=== PATIENT | female | born 1975 | race Caucasian/White ===

== ENCOUNTER 2020-01-22 08:52 | Outpatient (CLI) | payer OTHER, SELFPAY ==
--- NOTE | ~2020-01-22 | MR_ITS ---
EXAMINATION: MR knee RT wo con DATE: 01/22/2020 09:34 INDICATION: Lateral right knee pain. TECHNIQUE: Magnetic resonance imaging (MRI) of the right knee was performed without intravenous contr ast. Sequences included axial PD-weighted FS FSE, coronal PD-weighted FSE and PD-weighted FS FSE, sag ittal PD-weighted FSE, and sagittal T2-weighted FS FSE. COMPARISON: None. FINDINGS: Medial compartment: Increased signal and medial meniscus does not definitely extend to take liver surface to indicate a t ear. There is shallow partial-thickness cartilage loss of tibial condyle and femoral condyle, worst a t the central articular surface of femoral condyle. Marginal osteophytes are noted. Lateral compartment: There is a complex tear of lateral meniscus with flap component superior to the body segment. There i s deep partial thickness cartilage loss of femoral condyle involving the central articular surface. T here is deep partial thickness cartilage loss of tibial condyle involving the central articular surfa ce. Marginal osteophytes are noted. Patellofemoral compartment: There is deep partial thickness cartilage loss of patellar lateral facet with mild subchondral edema- like marrow signal intensity. There is deep partial thickness cartilage loss of patellar median ridge and medial facet. There is deep partial-thickness cartilage loss of lateral trochlea and shallow par tial-thickness cartilage loss of medial trochlea. Marginal osteophytes are noted. Ligaments and tendons: The anterior and posterior cruciate ligaments are normal. Medial collateral ligament is normal. There are changes of prior sprain of fibular collateral ligament characterized by increased signal intensi ty proximally. There is mild patellar tendinopathy. Fluid: There is a small knee joint effusion. There is trace fluid in a Lr's cyst. IMPRESSION: 1. 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 2. Tear of lateral meniscus. 3. Small knee joint effusion. Reviewed, dictated and finalized at location A. IMPRESSION: 1. Moderate chondrosis of lateral and patellofemoral compartments and mild senait drosis of medial compartment. 2. Tear of lateral meniscus. 3. Small knee joint effusion.
== END 2020-01-22 08:53 ==
PROVIDERS: Visit Provider Internal Medicine
DX: M62.89 Other specified disorders of muscle (principal); M25.461 Effusion, right knee; S83.281A Other tear of lateral meniscus, current injury, right knee, initial encounter; X58.XXXA Exposure to other specified factors, initial encounter
CPT/HCPCS: 73721

== ENCOUNTER 2023-01-20 15:32 | Emergency (ER) | payer OTHER, SELFPAY ==
--- NOTE | ~2023-01-20 | XR_ITS ---
EXAMINATION: XR chest 2V DATE: 01/20/2023 16:13 INDICATION: Left-sided chest pain TECHNIQUE: PA and lateral views of the chest are obtained. COMPARISON: None available FINDINGS: The lungs are free of acute opacities. No pleural effusion or pneumothorax. The cardiomedia stinal silhouette is normal. There is mild thoracic spondylosis. IMPRESSION: 1. No acute cardiopulmonary abnormality. Reviewed, dictated and finalized at location F.
--- NOTE | 2023-01-20 15:33 | ECG_ITS ---
Measurements Intervals [place] Rate: 75 P: 41 NM: 170 QRS: 6 QRSD: 157 T: 179 QT: 395 QTc: 442 Interpretive Statements SINUS RHYTHM LEFT BUNDLE BRANCH BLOCK [120+ ms QRS DURATION, 80+ ms Q/S IN V1/V2, 85+ ms R IN I/aVL/V5/V6] ABNORMAL ECG NO PREVIOUS ECG AVAILABLE FOR COMPARISON Electronically Signed On 01-21-2023 7:12:05 CDT by Skip Sarkar M.D.
[2023-01-20 15:34] VITALS: BP 150/74; PULSE 84; RESP 18; TEMP 36.5; O2SAT 100
[2023-01-20 15:55] LABS: Basophils Percent Auto 0.5 % (0.2-1.2); Eosinophils Absolute Auto 0.1 K/mm3 (0-0.3); Eosinophils Percent Auto 1.9 % (0-4.4); Hemoglobin 11.6 g/dL (12.0-15.0); Immature Granulocyte Absolute 0.02 K/mm3 (0.00-0.031); Immature Granulocyte Percent A 0.3 % (0-0.5); Lymphocytes Absolute Auto 1.43 K/mm3 (0.9-3.2); Lymphocytes Percent Auto 19.4 % (18.3-44.2); Mean Corpuscular HGB Conc 32.2 g/dl (32-36); Mean Corpuscular Hemoglobin 31.4 pg (26-34); Mean Corpuscular Volume 97.3 fl (80-100); Mean Platelet Volume 9.7 fl (7.4-10.4); Monocytes Absolute Auto 0.4 K/mm3 (0.1-0.6); Monocytes Percent Auto 5.8 % (2.6-8.5); Neutrophils Absolute Auto 5.3 K/mm3 (1.3-6.7); Neutrophils Percent Auto 72.1 % (45.5-73.1); Platelet Count Result 392 k/mm3 (150-375); Red Cell Distribution Width 14.2 % (11.5-14.5); White Blood Count 7.4 K/mm3 (4.5-10.0)
--- NOTE | 2023-01-20 16:12 | ED.CHESTPAIN ---
HPI - Chest Pain General Chief Complaint: Chest Pain Stated Complaint: chest pain Time Seen by Provider: 01/20/23 16:12 Source: patient and family Mode of arrival: ambulatory Limitations: no limitations History of Present Illness HPI narrative: 47 years old white female presents with left chest discomfort off and on while driving her car today usually lasts a maximum after 1 minute then go away. Radiating to her left shoulder and left arm. Currently patient is asymptomatic. She denies any aggravating or relieving factors. She denies any diaphoresis, or shortness of breath. History of hypertension, drinks alcohol occasionally, no family history of coronary artery disease. And she does not smoke. Patient is telling me that she have a history of left bundle branch block of unknown etiology. Patient reports having her grandson 2 days ago with a lot of lifting. Patient reports walking too much yesterday without any chest pain. Patient reports a lot of stress lately. Related Data Allergies Allergy/AdvReac Type Severity Reaction Status Date / Time Sulfa (Sulfonamide AdvReac Flushing Verified 01/20/23 15:37 Antibiotics) Review of Systems Review of Systems: All systems reviewed & are unremarkable except as noted in HPI and below Exam Narrative: General appearance: Well-developed, well-nourished Skin: Normal color Head: Normocephalic, nontraumatic Eyes: Clear conjunctiva ENT: Oropharynx normal, ears normal, nose normal Neck: Supple, nontender Chest and respiratory: Airway patent, no respiratory distress, no accessory muscle use Heart: Regular rate/rhythm Abdomen: Soft, nontender, no organomegaly, quiet bowel sounds Vascular: Normal peripheral pulses, normal capillary refill. Musculoskeletal: Normal range of motion, nontender back Neurologic: Alert and oriented ?3, MACHINE CARTON MARKER is normal as tested, no gross motor deficit Course Reevaluation(s) Reevaluation #1: Patient still asymptomatic Date: 01/20/23 Time: 18:04 Vital Signs Vital signs: Vital Signs Temperature 36.5 C 01/20/23 15:34 Pulse Rate 84 01/20/23 15:34 Respiratory Rate 18 01/20/23 15:34 Blood Pressure 150/74 H 01/20/23 15:34 Pulse Oximetry 100 01/20/23 15:34 Oxygen Delivery Room Air 01/20/23 15:34 Temperature 36.5 C 01/20/23 15:34 Pulse Rate 84 01/20/23 15:34 Respiratory Rate 18 01/20/23 15:34 Blood Pressure 150/74 H 01/20/23 15:34 Pulse Oximetry 100 01/20/23 15:34 Oxygen Delivery Room Air 01/20/23 15:34 MDM - Chest Pain MDM Narrative Medical decision making narrative: Differential diagnosis, musculoskeletal, stress-induced, pleurisy, pneumonia. Physical exam was unremarkable, blood pressure of 150/74 on arrival to the ED. EKG on arrival showed normal sinus rhythm at 75 bpm, left bundle branch block, no previous EKG available for comparison. Patient is telling me that she had history of EKG prior to surgery which showed left bundle branch block long time ago. Lab Data Attestation: I reviewed the patient's lab results. 01/20/23 15:41 01/20/23 15:41 Labs: Lab Results 01/20/23 01/20/23 Range/Units 15:41 18:44 WBC 7.4 (4.5-10.0) K/mm3 RBC 3.70 L (4.2-5.4) M/mm3 Hgb 11.6 L (12.0-15.0) g/dL Hct 36.0 L (37.0-47.0) % MCV 97.3 (80-100) fl MCH 31.4 (26-34) pg MCHC 32.2 (32-36) g/dl RDW 14.2 (11.5-14.5) % Plt Count 392 H (150-375) k/mm3 MPV 9.7 (7.4-10.4) fl Immature Gran % (Auto) 0.3 (0-0.5) % Neut % (Auto) 72.1 (45.5-73.1) % Lymph % (Auto) 19.4 (18.3-44.2) % [place] % (Auto) 5.8 (2.6-8.5) % Eos % (Auto) 1.9 (0-4.4) % Baso % (Auto) 0.5
[2023-01-20 16:13] LABS: Alanine Aminotransferase 28 U/L (6-35); Albumin Level 4.5 g/dL (3.5-5.1); Alkaline Phosphatase 84 U/L (38-126); Anion Gap 8 mmol/L (8-16); Aspartate Amino Transferase 26 U/L (14-36); Blood Urea Nitrogen 11 mg/dL (7-17); Calcium 9.5 mg/dL (8.4-10.2); Carbon Dioxide 23 mmol/L (22-30); Chloride 106 mmol/L (98-107); Estimated CRCL calculation 87 ml/min; Estimated Glomerular Filt Rate > 60; Glucose 113 mg/dL (65-110); Lipase 191 U/L (23-300); Potassium 3.9 mmol/L (3.4-5.0); Prothrombin Time 13.5 Seconds (11.1-14.7); Sodium 137 mmol/L (137-145)
[2023-01-20 16:14] LABS: Partial Thromboplastin Time 32.4 SECONDS (22.3-36.8)
[2023-01-20 16:23] LABS: Troponin I < 0.012 ng/mL (0.000-0.034)
[2023-01-20 16:37] LABS: Bilirubin,Total 0.7 mg/dL (0.2-1.3)
[2023-01-20 19:11] LABS: Troponin I < 0.012 ng/mL (0.000-0.034)
[2023-01-20 19:29] VITALS: BP 110/55; PULSE 63; RESP 20; O2SAT 99
== END 2023-01-20 19:31 | disposition home or self-care (01) ==
PROVIDERS: Emergency Provider Emergency Medicine
DX: R07.89 Other chest pain (principal); I10 Essential (primary) hypertension; I44.7 Left bundle-branch block, unspecified
CPT/HCPCS: 36415; 71046; 80053; 83690; 84484; 85025; 85610; 85730; 93005; 99284

== ENCOUNTER 2023-01-31 16:29 | Inpatient (IN) | payer OTHER, SELFPAY ==
[2023-01-31] VITALS (12 sets, daily range): BP systolic 94–133; BP diastolic 42–76; PULSE 64–88; RESP 9–21; TEMP 36.6–36.7; O2SAT 96–100; BMI 31.6
--- NOTE | ~2023-01-31 | XR_ITS ---
EXAMINATION: XR chest 1V portable Exam Date/Time: 01/31/2023 17:10 CDT HISTORY: cp. WEAKNESS Comparison: 01/20/2023. RESULT: Lines, tubes, and devices: None. Lungs and pleura: Clear. Cardiomediastinal silhouette: Stable. Other: No acute osseous or upper abdominal finding. IMPRESSION: No acute cardiopulmonary process. Reviewed, dictated and finalized at location K.
--- NOTE | ~2023-01-31 | CT_ITS ---
EXAMINATION: CT brain wo con DATE: 01/31/2023 17:39 INDICATION: Dizziness . TECHNIQUE: Computed tomography (CT) of the head was performed without intravenous contrast. The mA wa s adjusted according to patient size. Iterative reconstruction technique was employed. The dose-lengt h product was 605.33 mGy-cm. COMPARISON: None. FINDINGS: No acute intracranial hemorrhage or extra-axial fluid collection. No hydrocephalus, mass, or herniation. No acute ischemic infarct. Unremarkable dural venous sinus attenuation. No acute osseous abnormality. Small retention cyst/polyps in the sphenoid and right maxillary sinus. Aerated secretions in the left sphenoid and right middle ethmoid sinuses, the remaining aerated aerated spaces are clear. IMPRESSION: No acute intracranial process. Aerated secretions in multiple paranasal sinuses may reflect acute sinusitis in the appropriate clini [place] context. Reviewed, dictated and finalized at [facility]. IMPRESSION: No acute intracranial process. Aerated secretions in multiple paranasal sinuses may reflect acute sinusitis in the appropriate clinical context.
--- NOTE | ~2023-01-31 | CT_ITS ---
EXAMINATION: CTA BRAIN/CAROTID DATE: 02/02/2023 13:21 INDICATION: Lightheadedness and dizziness. TECHNIQUE: Computed tomographic angiography (CTA) of the head and neck was performed with 100 mL Omni paque-350 intravenous contrast. Multiplanar reconstructions and maximum intensity projection 3D-recon structions of the carotid arteries and of the intracranial arteries were created by the technologist on a separate workstation. Precontrast CT of the head was also obtained. Automated exposure control and iterative reconstruction technique were employed.The dose-length product was 1563.99 mGy-cm. COMPARISON: Brain MR dated 01/02/2023 and PET/CT dated 01/31/2023 FINDINGS: Carotid arteries: Visualized aortic arch is normal in caliber with no dissection. There is no evident plaque with 0% st enosis of both the right and left carotid bulbs relative to normal distal artery lumen diameter (NASC ET criteria). The left vertebral artery is dominant with no evident atherosclerotic plaque or stenosi s. Cervical soft tissues and visualized superior mediastinum and apices of lungs are unremarkable. Mi ld to moderate cervical spondylosis. Head: No acute intracranial hemorrhage, acute infarction or abnormal extra axial fluid collection. Ventricl es are normal and symmetric. No mass/mass effect. No abnormally enhancing brain lesions. The orbits a nd mastoid air cells are normal. Mild mucosal thickening in the right sphenoid sinus and small amount of bubbly mucus in the left sphenoid sinus. Intracranial arteries There is no hemodynamically significant stenosis in the vertebral, basilar and internal carotid arter ies. The left vertebral artery is dominant. There are no aneurysms identified. Both A1 and P1 segmen ts are patent. The right P1 segment is smaller than the left with a similar sized patent right key account manager ior commuting artery contributing to the vascular flow to the right posterior cerebral artery. Cerebr al arterial arborization appears symmetric. IMPRESSION: 1. No evident atherosclerotic plaque with 0% stenosis of the right and left carotid bulbs relative to normal distal artery lumen diameter (NASCET criteria). 2. Normal cerebral CT angiogram. 3. No acute intracranial process. Reviewed, dictated and finalized at location A. IMPRESSION: 1. No evident atherosclerotic plaque with 0% stenosis of the right and left car otid bulbs relative to normal distal artery lumen diameter (NASCET criteria). 2. Normal cerebral CT angiogram. 3. No acute intracranial process.
--- NOTE | ~2023-01-31 | MR_ITS ---
EXAMINATION: MR brain/brain stem wo con DATE: 02/02/2023 13:13 INDICATION: Acute onset dizziness TECHNIQUE: Magnetic resonance imaging (MRI) of the brain and brainstem was performed without intraven ous contrast. Sequences included sagittal and axial T1-weighted SE, axial diffusion-weighted FS SE, a xial 3D SWAN, axial T2-weighted FLAIR, and axial T2-weighted FSE. Apparent diffusion coefficient (ADC ) maps were created. COMPARISON: Head CT dated 01/31/2023 FINDINGS: There are no areas of restricted diffusion to suggest acute infarction. No intracranial hemorrhage or abnormal intracranial mass lesion. There are no intraparenchymal signal abnormalities seen on the ot her pulse sequences. The ventricles are symmetric and normal in size. There are no abnormal extra-axi al fluid collections. Flow voids are seen in the cerebral arteries on the T2-weighted sequences consi stent with their expected patency. Left vertebral artery is dominant. Mild mucosal thickening the janna ateral maxillary sinuses. Small amount of bubbly mucus in the left sphenoid sinus. Visualized orbits and soft tissues are unremarkable. IMPRESSION: 1. No acute intracranial process. Reviewed, dictated and finalized at location A.
--- NOTE | 2023-01-31 16:57 | ECG_ITS ---
Measurements Intervals [place] Rate: 74 P: 46 MD: 162 QRS: 4 QRSD: 169 T: 174 QT: 428 QTc: 477 Interpretive Statements SINUS RHYTHM LEFT BUNDLE BRANCH BLOCK [120+ ms QRS DURATION, 80+ ms Q/S IN V1/V2, 85+ ms R IN I/aVL/V5/V6] ABNORMAL ECG COMPARED TO ECG 01/20/2023 15:39:30 NO SIGNIFICANT CHANGES Electronically Signed On 02-01-2023 9:43:41 CDT by Jerardo Storey M.D.
[2023-01-31 17:20] LABS: Basophils Absolute Auto 0.1 K/mm3 (0.0-0.1); Basophils Percent Auto 0.5 % (0.2-1.2); Eosinophils Absolute Auto 0.1 K/mm3 (0-0.3); Hematocrit 37.3 % (37.0-47.0); Hemoglobin 12.1 g/dL (12.0-15.0); Immature Granulocyte Absolute 0.04 K/mm3 (0.00-0.031); Immature Granulocyte Percent A 0.4 % (0-0.5); Lymphocytes Absolute Auto 2.05 K/mm3 (0.9-3.2); Lymphocytes Percent Auto 22.4 % (18.3-44.2); Mean Corpuscular HGB Conc 32.4 g/dl (32-36); Mean Corpuscular Hemoglobin 31.3 pg (26-34); Mean Corpuscular Volume 96.4 fl (80-100); Mean Platelet Volume 10.3 fl (7.4-10.4); Monocytes Absolute Auto 0.5 K/mm3 (0.1-0.6); Monocytes Percent Auto 5.9 % (2.6-8.5); Neutrophils Absolute Auto 6.4 K/mm3 (1.3-6.7); Neutrophils Percent Auto 69.8 % (45.5-73.1); Platelet Count Result 466 k/mm3 (150-375); Red Blood Count 3.87 M/mm3 (4.2-5.4); Red Cell Distribution Width 13.6 % (11.5-14.5); White Blood Count 9.2 K/mm3 (4.5-10.0)
--- NOTE | 2023-01-31 17:26 | ED.DIZZY ---
HPI - Dizziness General Chief Complaint: Dizziness Stated Complaint: lightheaded/dizzy Time Seen by Provider: 01/31/23 17:19 Source: patient Mode of arrival: ambulatory Limitations: no limitations History of Present Illness HPI Narrative: 47 years old white female came to the emergency room by private car complaining of lightheadedness and dizziness associated with nausea started 7 hours prior to arrival to the emergency room, steady, worse with standing or movement, better if she remaining still. History of hypertension, cardiomyopathy of unknown etiology, polycystic kidney disease, left bundle branch block,. Currently patient on metoprolol and losartan. She does not smoke or drink or uses drugs. Related Data Home Medications Medication Instructions Recorded Confirmed bupropion HCl 300 mg 24 hr tablet, 300 mg PO QAM 01/20/23 01/31/23 extended release (Wellbutrin XL) furosemide 40 mg tablet (Lasix) 40 mg PO DAILY 01/20/23 01/31/23 losartan 100 mg tablet 100 mg PO DAILY 01/20/23 01/31/23 metoprolol tartrate 50 mg tablet 50 mg PO BID 01/20/23 01/31/23 montelukast 10 mg tablet 10 mg PO DAILY 01/20/23 01/31/23 (Singulair) venlafaxine 75 mg tablet 225 mg PO DAILY 01/20/23 01/31/23 esomeprazole magnesium 40 mg 40 mg PO DAILY 01/31/23 01/31/23 capsule,delayed release famotidine 40 mg tablet 40 mg PO DAILY 01/31/23 01/31/23 Allergies Allergy/AdvReac Type Severity Reaction Status Date / Time Sulfa (Sulfonamide AdvReac Flushing Verified 01/20/23 15:37 Antibiotics) Review of Systems Review of Systems: All systems reviewed & are unremarkable except as noted in HPI and below PMFSH Past Medical History Medical History (Updated 01/31/23 @ 21:40 by Tom Lucio MD) Cardiomyopathy Hypertension Obesity (BMI 30.0-34.9) Family History Family History Grandparent Diabetes mellitus Hypertension Mother Hypertension Father Hypertension Heart disease Sibling Hypertension Social History Social History Smoking status: Never smoker Alcohol intake: current Drinks per week: 1 Substance use: never Lack of Transportation: No Lack of Food: Never True Current Housing: I Have Housing Concerned About Future Housing: No Difficulty Paying Gas/Electric Bills: No Difficulty Paying for Meds: No Currently Unemployed: No Education: High School Diploma/GED Difficulty w/ Childcare or Family Care: No Spiritual care concerns: No Exam Narrative: General appearance: Well-developed, well-nourished Skin: Normal color Head: Normocephalic, nontraumatic Eyes: Clear conjunctiva ENT: Oropharynx normal, ears normal, nose normal Neck: Supple, nontender Chest and respiratory: Airway patent, no respiratory distress, no accessory muscle use Heart: Regular rate/rhythm Abdomen: Soft, nontender, no organomegaly, quiet bowel sounds Vascular: Normal peripheral pulses, normal capillary refill. Musculoskeletal: Normal range of motion, nontender back Neurologic: Alert and oriented ?3, BUDGET MANAGER is normal as tested, no gross motor deficit Course Vital Signs Vital signs: Vital Signs Temperature 36.6 C 01/31/23 16:54 Pulse Rate 88 01/31/23 16:54 Respiratory Rate 16 01/31/23 16:54 Blood Pressure 101/67 01/31/23 16:54 Pulse Oximetry 98 01/31/23 16:54 Temperature 36.6 C 01/31/23 16:54 Pulse Rate 64 01/31/23 20:03 Respiratory Rate 15 01/31/23 20:03 Blood Pressure 118/50 L 01/31/23 20:03 Pulse Oximetry 100 01/31/23 20:03 MDM - Dizziness MDM Narrative Medical decision making narrative: Mirtha
[2023-01-31 17:43] LABS: Alanine Aminotransferase 52 U/L (6-35); Albumin Level 4.8 g/dL (3.5-5.1); Alkaline Phosphatase 92 U/L (38-126); Anion Gap 13 mmol/L (8-16); Aspartate Amino Transferase 39 U/L (14-36); Bilirubin,Total 0.7 mg/dL (0.2-1.3); Blood Urea Nitrogen 21 mg/dL (7-17); Calcium 9.8 mg/dL (8.4-10.2); Carbon Dioxide 27 mmol/L (22-30); Chloride 99 mmol/L (98-107); Estimated CRCL calculation 53 ml/min; Estimated Glomerular Filt Rate 37; Glucose 96 mg/dL (65-110); Lipase 201 U/L (23-300); Potassium 3.5 mmol/L (3.4-5.0); Sodium 139 mmol/L (137-145)
[2023-01-31] MEDS: MECLIZINE HCL 25 MG TABLET PO (17:53)
[2023-01-31] MEDS: ONDANSETRON INJ 4 MG/2 ML VIAL IV PUSH (17:53)
[2023-01-31] MEDS: diazePAM INJ (*CRX) 10 MG/2 ML SYRINGE 5 MG IV PUSH (17:53)
[2023-01-31 17:55] LABS: Troponin I < 0.012 ng/mL (0.000-0.034)
[2023-01-31 17:58] LABS: Partial Thromboplastin Time 33.4 SECONDS (22.3-36.8)
[2023-01-31 18:12] LABS: Prothrombin Time 13.5 Seconds (11.1-14.7)
[2023-01-31] MEDS: SODIUM CHLORIDE 0.9% IV 1,000 ML 999 ML IV CONT ×2 (18:29→21:10)
[2023-01-31 19:27] LABS: Appearance Urine Cloudy (Clear); Bacteria Urine Rare /hpf; Bilirubin Urine 2+ (Negative); Blood Urine Trace (Negative); Color Urine Dark Yellow (Yellow); Glucose Urine UA Negative (Negative); Hyaline Casts Urine Present /lpf; Ketones Urine Trace mg/dL (Negative); Leukocyte Esterase Ur 1+ LEU/UL (Negative); Nitrate Urine Negative (Negative); Protein Urine 1+ mg/dL (Negative); Specific Grav Ur 1.025 (1.001-1.035); Squamous Epithelial Cell Urine Occasional /hpf (Few); WBC Urine 0-5 /hpf; pH Urine 5.5 (5.0-9.0)
[2023-01-31 19:28] LABS: Add Urine Microscopic? YES
[2023-01-31 20:18] LABS: Troponin I < 0.012 ng/mL (0.000-0.034)
--- NOTE | 2023-01-31 21:33 | PM.IMHP ---
H&P: HPI History of Present Illness Date/Time: 01/31/23 21:33 Chief Complaint: Patient came into the hospital for evaluation complaining of dizziness and lightheadedness Narrative: She is a very pleasant lady with the past medical history significant for cardiomyopathy of unknown etiology, currently on Lasix and cardiac meds, who is complaining of feeling weak, tired and fatigued for the last few hours as well as dizziness. She got concerned and was brought over to the ER for evaluation by her family in a private vehicle. Workup was done which showed dehydration and YASMANI likely due to over-diuresis. She was started on IV hydration which made her feel a little better but she still feels dizzy. She is being admitted overnight for gentle hydration until she is clinically more stable. Review of Systems Review of Systems: She denied any chest pain, palpitations, fever rigor chills, nausea vomiting, or abdominal pain. All systems reviewed & are unremarkable except as noted in HPI and below PMFSH Past Medical History Medical History (Updated 01/31/23 @ 21:40 by Tom Lucio MD) Cardiomyopathy Hypertension Obesity (BMI 30.0-34.9) Meds Home Medications and Allergies Home Medications Medication Instructions Recorded Confirmed Type bupropion HCl 300 mg 24 hr tablet, 300 mg PO QAM 01/20/23 History extended release (Wellbutrin XL) furosemide 40 mg tablet (Lasix) 40 mg PO DAILY 01/20/23 History losartan 100 mg tablet 100 mg PO DAILY 01/20/23 History metoprolol tartrate 50 mg tablet 50 mg PO BID 01/20/23 History montelukast 10 mg tablet 10 mg PO DAILY 01/20/23 History (Singulair) venlafaxine 75 mg tablet 225 mg PO DAILY 01/20/23 History Allergies Allergy/AdvReac Type Severity Reaction Status Date / Time Sulfa (Sulfonamide AdvReac Flushing Verified 01/20/23 15:37 Antibiotics) Vital Signs Vital Signs - 24 hr 01/31/23 16:54 01/31/23 17:10 01/31/23 17:12 Temperature 36.6 C Pulse Rate 88 72 84 Respiratory Rate 16 Blood Pressure 101/67 117/63 113/75 Pulse Oximetry 98 01/31/23 17:14 01/31/23 17:58 01/31/23 18:16 Temperature Pulse Rate 88 78 75 Respiratory Rate 16 19 Blood Pressure 125/72 94/57 L 105/76 Pulse Oximetry 97 96 01/31/23 18:17 01/31/23 18:49 01/31/23 19:00 Temperature Pulse Rate 74 67 69 Respiratory Rate 13 9 L 11 L Blood Pressure Pulse Oximetry 98 100 100 01/31/23 19:01 01/31/23 20:03 Temperature Pulse Rate 68 64 Respiratory Rate 14 15 Blood Pressure 114/67 118/50 L Pulse Oximetry 98 100 Exam Narrative: PHYSICAL EXAMINATION: Vital signs: Please see the chart. General physical exam: Well-developed, well-nourished, feels tired and fatigued Head/eyes: Atraumatic, EOMI, PERRLA. ENT: +dry mucous membranes, nasal passages clear. Neck: Supple, full range of motion, trachea midline. CVS: S1 + S2 + 0, regular rate and rhythm, no murmurs Respiratory: Bilaterally fair air entry in both lung beverly, mild B/L crackles, symmetric chest expansion, no distress Abdomen: Soft, non-tender, bowel sounds +ve, no organomegaly Extremities: No clubbing, no cyanosis, no edema, no calf tenderness Musculoskeletal: Moves all, adequate range of motion, no muscle spasms Skin: Warm, dry, no jaundice, no cyanosis Neurological: Awake, alert, oriented x 3, cranial nerves II-XII intact, no focal neurological deficits Psychiatric: Normal mood, non suicidal H&P: Results Labs Labs: Short CBC 01/31/23 Range/Units 17:13 WBC 9.2 (4.5-10.0) K/mm3 Hgb 12.1 (12.0-15.0) g/dL Hct 37.3 (37.0-47.0) % Plt Count 466 H (150-375) k/mm3 BMP 01/31/23 17:13 Sodium 139 Potassium 3.5 Chloride 99 Carbon Dioxide 27 BUN 21 H D Creatinine 1.50 H Glucose 96 Calcium 9.8 Cardiac Enzymes 01/31/23 01/31/23 Range/Units 17:13 19:49 Troponin I < 0.012 < 0.012 (0.000-0.034) ng/mL Liver Function 01/31/23 Range/Units 17:13
[2023-01-31] MEDS: KCL 20 MEQ/D5/0.45% SOD CHL 1,000 ML 125 ML IV CONT (22:24)
--- NOTE | 2023-01-31 23:06 | PC.NURSE ---
Pt arrived at 2300 01/31/23
[2023-01-31 23:40] LABS: Troponin I < 0.012 ng/mL (0.000-0.034)
[2023-02-01] VITALS (14 sets, daily range): BP systolic 112–121; BP diastolic 42–62; PULSE 60–77; RESP 13–21; TEMP 36.3–36.9; O2SAT 95–100
[2023-02-01 05:52] LABS: Anion Gap 3 mmol/L (8-16); Blood Urea Nitrogen 14 mg/dL (7-17); Calcium 8.4 mg/dL (8.4-10.2); Carbon Dioxide 30 mmol/L (22-30); Chloride 105 mmol/L (98-107); Estimated CRCL calculation 73 ml/min; Estimated Glomerular Filt Rate 53; Glucose 91 mg/dL (65-110); Magnesium 2.1 mg/dL (1.6-2.3); Phosphorus 3.7 mg/dL (2.5-4.5); Potassium 3.4 mmol/L (3.4-5.0); Sodium 138 mmol/L (137-145)
[2023-02-01] MEDS: KCL 20 MEQ/D5/0.45% SOD CHL 1,000 ML 125 ML IV CONT (06:15)
[2023-02-01] MEDS: METOPROLOL TARTRATE 50 MG TAB PO ×2 (08:18→20:14)
[2023-02-01] MEDS: LOSARTAN POTASSIUM 100 MG TABLET PO (08:18)
[2023-02-01] MEDS: PANTOPRAZOLE 40 MG TABLET PO (08:19)
[2023-02-01] MEDS: buPROPion HCL XL (24 HR) 150 MG TABCR 300 MG PO (08:19)
[2023-02-01] MEDS: MONTELUKAST SODIUM 10 MG TABLET PO (08:19)
[2023-02-01] MEDS: FAMOTIDINE 20 MG TABLET 40 MG PO (08:19)
--- NOTE | 2023-02-01 08:36 | PM.IMPN ---
Progress Note: A&P Assessment and Plan (1) Orthostatic hypotension: Code(s): I95.1 - Orthostatic hypotension Status: Acute (2) Dehydration: Code(s): E86.0 - Dehydration Status: Acute (3) YASMANI (acute kidney injury): Code(s): N17.9 - Acute kidney failure, unspecified Status: Acute (4) Cardiomyopathy: Code(s): I42.9 - Cardiomyopathy, unspecified Status: Acute (5) Obesity (BMI 30.0-34.9): Code(s): E66.9 - Obesity, unspecified Status: Acute (6) Hypertension: Code(s): I10 - Essential (primary) hypertension Status: Acute Plan Place patient under observation status Continuous cardiac tele monitoring Patient received 2 L of IV hydration in the ER Continue with gentle IV hydration with D5 half normal saline with 20 mEq KCL at 125 cc/hour on the floor Strict I&O Hold off on Lasix Continue with cardiac meds 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 Electrolyte replacement as per protocol. Kidney function is improving, patient still has a dizziness Vital signs stable Repeat echocardiogram Subjective Date/time seen: 02/01/23 08:36 Interval history: I saw exam patient today, patient still has dizziness, patient received fluid resuscitation, BUN creatinine is trending down. Patient denies headache, focal weakness, abdomen pain, nausea vomiting diarrhea dysuria Exam Narrative: Vital signs: Please see the chart. General physical exam: Well-developed, well-nourished, feels tired and fatigued Head/eyes: Atraumatic, EOMI, PERRLA. ENT: +dry mucous membranes, nasal passages clear. Neck: Supple, full range of motion, trachea midline. CVS: S1 + S2 + 0, regular rate and rhythm, no murmurs Respiratory: Bilaterally fair air entry in both lung beverly, mild B/L crackles, symmetric chest expansion, no distress Abdomen: Soft, non-tender, bowel sounds +ve, no organomegaly Extremities: No clubbing, no cyanosis, no edema, no calf tenderness Musculoskeletal: Moves all, adequate range of motion, no muscle spasms Skin: Warm, dry, no jaundice, no cyanosis Neurological: Awake, alert, oriented x 3, cranial nerves II-XII intact, no focal neurological deficits Psychiatric: Normal mood, non suicidal Objective Data Vital Signs Vital Signs: Vital Signs - 24 hr 01/31/23 16:54 01/31/23 17:10 01/31/23 17:12 Temperature 97.9 F Pulse Rate 88 72 84 Respiratory Rate 16 Blood Pressure 101/67 117/63 113/75 Pulse Oximetry 98 Oxygen Delivery 01/31/23 17:14 01/31/23 17:58 01/31/23 18:16 Temperature Pulse Rate 88 78 75 Respiratory Rate 16 19 Blood Pressure 125/72 94/57 L 105/76 Pulse Oximetry 97 96 Oxygen Delivery 01/31/23 18:17 01/31/23 18:49 01/31/23 19:00 Temperature Pulse Rate 74 67 69 Respiratory Rate 13 9 L 11 L Blood Pressure Pulse Oximetry 98 100 100 Oxygen Delivery 01/31/23 19:01 01/31/23 20:03 01/31/23 23:53 Temperature 98.0 F Pulse Rate 68 64 76 Respiratory Rate 14 15 21 H Blood Pressure 114/67 118/50 L 133/42 L Pulse Oximetry 98 100 100 Oxygen Delivery 02/01/23 01:02 02/01/23 01:02 02/01/23 00:00 Temperature Pulse Rate 71 77 Respiratory Rate 13 Blood Pressure Pulse Oximetry 96 95 Oxygen Delivery Room Air [employer] 02/01/23 04:00 02/01/23 06:00 02/01/23 08:18 Temperature 98.5 F Pulse Rate 73 76 75 Respiratory Rate 21 H Blood Pressure 121/50 L Pulse Oximetry 100 Oxygen Delivery Intake/Output Intake/Output: Intake & Output 01/29/23 01/30/23 01/31/23 02/01/23 23:59 23:59 23:59 23:59 Intake Total 1999 1500 Output Total 800 Balance 1999 700 Meds/Results Medications: Active Medications Generic Name Dose
--- NOTE | 2023-02-01 08:41 | ECHO_ITS ---
Patient Info Name: Cee Quintero Age: 47 years : 1975 Gender: Female Ht: 71 in Wt: 227 lbs BSA: 2.30 m2 HR: 71 bpm BP: 121 / 50 mmHg Heart Rhythm: Sinus Rhythm Technical Quality: Fair Exam Date: 02/01/2023 1:30 PM Exam Location: [facility] Patient Status: Inpatient Admit Date: 01/31/2023 Staff Ordering Physician: Iban Meneses MD Stone Paver: Beatriz Phillips RDCS Attending Provider: Tom Lucio MD Exam Type: CA echo doppler color flow Study Info Indications R42 - Dizziness and giddiness Complete two-dimensional, color flow and Doppler transthoracic echocardiogram is performed. Summary 1. Complete two-dimensional, color flow and Doppler transthoracic echocardiogram is performed. 2. Overall normal left ventricular systolic function with abnormal septal motion due to bundle branch block. 3. Grade 1 diastolic noncompliance. 4. No valvular dysfunction. Left Ventricle Left ventricular chamber dimension is normal. Left ventricular systolic function is normal, estimated at 50-55%. Left ventricular septal wall motion is abnormal with septal motion related to bundle branch block. The left ventricular diastolic function is grade I diastolic dysfunction. Right Ventricle Right ventricular chamber dimension is normal. Left Atria Left atrial chamber dimension is normal. Right Atria Right atrial chamber dimension is normal. Aortic Valve The aortic valve is trileaflet. Pulmonic Valve The pulmonic valve is not well visualized. Mitral Valve The mitral valve has normal leaflets. Tricuspid Valve The tricuspid valve leaflets are normal. There is trace tricuspid valve regurgitation. Pericardium/Pleural The pericardium appears normal. Aorta The aortic root size at the sinus of Valsalva is normal. Left Ventricular Outflow Tract Name Value Normal LVOT 2D LVOT Diameter 2.0 cm LVOT Doppler LVOT Peak Gradient 9 mmHg LVOT Mean Gradient 5 mmHg LVOT VTI 30 cm LVOT VTI/AV VTI Ratio 0.9 LVOT Stroke Volume 92 ml LVOT CO 6.6 l/min LVOT CI 2.9 l/min/m2 Pulmonic Valve Name Value Normal RVOT Doppler RVOT Peak Gradient 5 mmHg PV Doppler PV Peak Gradient 8 mmHg Mitral Valve Name Value Normal MV Doppler MV Decel [place] 655 cm/s2 MV PHT 43 ms MV Area (PHT) 5.2 cm2 4.0-5.0
[2023-02-01] MEDS: VENLAFAXINE HCL XR 75 MG CAP.ER.24H 225 MG PO (09:43)
[2023-02-01] MEDS: SODIUM CHLORIDE 0.9% IV 1,000 ML 150 ML IV CONT ×2 (09:44→16:33)
[2023-02-01] MEDS: MECLIZINE HCL 25 MG TABLET PO (20:14)
[2023-02-02] VITALS (12 sets, daily range): BP systolic 107–118; BP diastolic 47–62; PULSE 57–72; RESP 18–21; TEMP 36–36.7; O2SAT 100
[2023-02-02 06:18] LABS: Anion Gap 8 mmol/L (8-16); Blood Urea Nitrogen 8 mg/dL (7-17); Calcium 9.1 mg/dL (8.4-10.2); Carbon Dioxide 27 mmol/L (22-30); Chloride 106 mmol/L (98-107); Estimated CRCL calculation 79 ml/min; Estimated Glomerular Filt Rate 59; Glucose 88 mg/dL (65-110); Potassium 3.8 mmol/L (3.4-5.0); Sodium 141 mmol/L (137-145)
--- NOTE | 2023-02-02 08:35 | PM.IMPN ---
Progress Note: A&P Assessment and Plan (1) Orthostatic hypotension: Code(s): I95.1 - Orthostatic hypotension Status: Acute (2) Dehydration: Code(s): E86.0 - Dehydration Status: Acute (3) YASMANI (acute kidney injury): Code(s): N17.9 - Acute kidney failure, unspecified Status: Acute (4) Cardiomyopathy: Code(s): I42.9 - Cardiomyopathy, unspecified Status: Acute (5) Obesity (BMI 30.0-34.9): Code(s): E66.9 - Obesity, unspecified Status: Acute (6) Hypertension: Code(s): I10 - Essential (primary) hypertension Status: Acute Plan Place patient under observation status Continuous cardiac tele monitoring Patient received 2 L of IV hydration in the ER Continue with gentle IV hydration with D5 half normal saline with 20 mEq KCL at 125 cc/hour on the floor Strict I&O Hold off on Lasix Continue with cardiac meds 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 Electrolyte replacement as per protocol. Kidney function is improving, patient still has a dizziness Vital signs stable Repeated echocardiogram, report is pending consult neurologist for evaluation and treatments a Subjective Date/time seen: 02/02/23 08:35 Interval history: I saw exam patient today, patient still has dizziness, renal function recovers. Patient denies headache, focal weakness, abdomen pain, nausea vomiting diarrhea dysuria Exam Narrative: Vital signs: Please see the chart. General physical exam: Well-developed, well-nourished, feels tired and fatigued Head/eyes: Atraumatic, EOMI, PERRLA. ENT: +dry mucous membranes, nasal passages clear. Neck: Supple, full range of motion, trachea midline. CVS: S1 + S2 + 0, regular rate and rhythm, no murmurs Respiratory: Bilaterally fair air entry in both lung beverly, mild B/L crackles, symmetric chest expansion, no distress Abdomen: Soft, non-tender, bowel sounds +ve, no organomegaly Extremities: No clubbing, no cyanosis, no edema, no calf tenderness Musculoskeletal: Moves all, adequate range of motion, no muscle spasms Skin: Warm, dry, no jaundice, no cyanosis Neurological: Awake, alert, oriented x 3, cranial nerves II-XII intact, no focal neurological deficits Psychiatric: Normal mood, non suicidal Objective Data Vital Signs Vital Signs: Vital Signs - 24 hr 02/01/23 12:05 02/01/23 16:00 02/01/23 16:06 Temperature 97.9 F Pulse Rate 61 63 Respiratory Rate 18 Blood Pressure 114/42 L 112/55 L Pulse Oximetry 99 Oxygen Delivery 02/01/23 16:06 02/01/23 16:05 02/01/23 20:14 Temperature Pulse Rate 60 63 Respiratory Rate Blood Pressure 113/54 L Pulse Oximetry Oxygen Delivery 02/01/23 21:02 02/01/23 20:00 02/02/23 00:00 Temperature 97.3 F L Pulse Rate 63 68 66 Respiratory Rate 18 Blood Pressure 115/62 Pulse Oximetry 100 Oxygen Delivery 02/01/23 22:25 02/02/23 04:00 02/02/23 05:06 Temperature 97.6 F Pulse Rate 70 65 Respiratory Rate 18 Blood Pressure 118/47 L Pulse Oximetry 99 100 Oxygen Delivery Room Air Intake/Output Intake/Output: Intake & Output 01/30/23 01/31/23 02/01/23 02/02/23 23:59 23:59 23:59 23:59 Intake Total 1999 4230 Output Total 1400 1500 Balance 1999 2830 -1500 Meds/Results Medications: Active Medications Generic Name Dose Route Start Last Admin Trade Name Freq PRN Reason Stop Dose Admin Acetaminophen 650 mg 01/31/23 21:49 Acetaminophen 325 Mg Tablet PO Q4H PRN Mild Pain (1-3) or Fever Al Hydrox/Mg Hydrox/Simethicone 30 ml 01/31/23 21:43 Mag Hydrox/Al Hydrox/Simeth 30 Ml Udc PO QID PRN Dyspepsia Bupropion HCl 300 mg 02/01/23 09:00 02/01/23 08:19
[2023-02-02] MEDS: MONTELUKAST SODIUM 10 MG TABLET PO (09:12)
[2023-02-02] MEDS: buPROPion HCL XL (24 HR) 150 MG TABCR 300 MG PO (09:12)
[2023-02-02] MEDS: METOPROLOL TARTRATE 50 MG TAB PO ×2 (09:12→20:17)
[2023-02-02] MEDS: LOSARTAN POTASSIUM 100 MG TABLET PO (09:12)
[2023-02-02] MEDS: FAMOTIDINE 20 MG TABLET 40 MG PO (09:13)
[2023-02-02] MEDS: PANTOPRAZOLE 40 MG TABLET PO (09:13)
[2023-02-02] MEDS: VENLAFAXINE HCL XR 75 MG CAP.ER.24H 225 MG PO (09:14)
--- NOTE | 2023-02-02 12:04 | WPDNEURCNPN ---
Assessment and Plan Assessment and plan (1) Orthostatic hypotension: Code(s): I95.1 - Orthostatic hypotension Status: Acute (2) Dehydration: Code(s): E86.0 - Dehydration Status: Acute (3) Cardiomyopathy: Code(s): I42.9 - Cardiomyopathy, unspecified Status: Acute Plan Ms. Quintero is a 47 year old female with a history of cardiomyopathy presenting due to lightheadeness. Suspect likely due to orthostatic intolerance in the setting of softer blood pressures. - Obtain MRI brain and CTA brain/carotid - Check orthostatic vitals - Optimize blood pressure Consult date: 02/02/23 Reason for consult: Dizziness HPI: Cee Quintero is a 47 year old female with a history of cardiomyopathy of unknown etiology presenting with generalized weakness, fatigue, and dizziness. About two days ago around 10AM, patient suddenly felt dizzy -- which she describes as lightheadedness. She denies any room spinning sensation. Her lightheadedness was worse when going from sitting to standing. In the ED when she was evaluated, her work-up was consistent with dehydration possibly due to over-diuresis. She was given IV fluids which has helped the lightheadedness somewhat. She continues to have some lightheadedness when standing and things appears fuzzy to her vision when she works. If she turns her head quickly, the symptoms worsen as well. She denies any stroke like or focal neurological symptoms. Her diastolic blood pressure has been in the 40-50s since admission and systolic has been mostly in the 110-120s. Review of Systems Constitutional: Constitutional: Denies chills, Denies fever(s) and Denies weight loss Eyes: Eyes: Reports blurry vision, Denies diplopia and Denies loss of vision ENT: Denies dizziness, Denies hearing loss and Denies tinnitus Cardiovascular: Cardiovascular: Denies chest pain, Denies syncope, Reports lightheadedness and Denies dyspnea Respiratory: Respiratory: Denies cough, Denies dyspnea and Denies wheezing Gastrointestinal: Gastrointestinal: Denies abdominal pain, Denies change in bowel habits and Denies vomiting Genitourinary: Genitourinary: Denies urinary incontinence Musculoskeletal: Musculoskeletal: Denies arthralgias and Denies joint swelling Integumentary/Breasts: Skin/Breast: Denies new lesions and Denies rash Neurologic: Reports as per HPI, Denies dizziness, Denies syncope and Denies loss of vision Psychiatric: Psychiatric: Reports anxiety and Reports depression Endocrine: Endocrine: Denies cold intolerance and Denies heat intolerance Hematologic/Lymphatic: Hematologic/Lymphatic: Denies easy bleeding and Denies easy bruising Allergic/Immunologic: Allergic/Immunologic: Denies no additional allergic/immunologic complaints and Denies wheezing PMFSH Past Medical History Medical History Cardiomyopathy Hypertension Obesity (BMI 30.0-34.9) Family History Family History Grandparent Diabetes mellitus Hypertension Mother Hypertension Father Hypertension Heart disease Sibling Hypertension Social History Social History Smoking status: Never smoker Alcohol intake: current Drinks per week: 1 Substance use: never Lack of Transportation: No Lack of Food: Never True Current Housing: I Have Housing Concerned About Future Housing: No Difficulty Paying Gas/Electric Bills: No Difficulty Paying for Meds: No Currently Unemployed: No Education: High School Diploma/GED Difficulty w/ Childcare or Family Care: No Spiritual care concerns: No Meds Home Medications and Allergies Home Medications Medication Instructions Recorded Confirmed Type bupropion HCl 300 mg 24 hr tablet, 300 mg PO QAM 01/20/23 01/31/23 History extended release (Wellbutrin XL) furosemide 40 mg tablet (Lasix) 40
[2023-02-03] VITALS: PULSE 64
[2023-02-03 04:00] VITALS: PULSE 73
[2023-02-03 06:00] VITALS: BP 117/72; PULSE 58; RESP 20; TEMP 36.7; O2SAT 99
[2023-02-03 06:18] LABS: Anion Gap 6 mmol/L (8-16); Blood Urea Nitrogen 13 mg/dL (7-17); Calcium 9.1 mg/dL (8.4-10.2); Carbon Dioxide 32 mmol/L (22-30); Chloride 103 mmol/L (98-107); Estimated CRCL calculation 73 ml/min; Estimated Glomerular Filt Rate 53; Glucose 93 mg/dL (65-110); Potassium 3.9 mmol/L (3.4-5.0); Sodium 141 mmol/L (137-145)
[2023-02-03 07:58] VITALS: O2SAT 99
--- NOTE | 2023-02-03 08:30 | PM.IMPN ---
Progress Note: A&P Assessment and Plan (1) Orthostatic hypotension: Code(s): I95.1 - Orthostatic hypotension Status: Acute (2) Dehydration: Code(s): E86.0 - Dehydration Status: Acute (3) YASMANI (acute kidney injury): Code(s): N17.9 - Acute kidney failure, unspecified Status: Acute (4) Cardiomyopathy: Code(s): I42.9 - Cardiomyopathy, unspecified Status: Acute (5) Obesity (BMI 30.0-34.9): Code(s): E66.9 - Obesity, unspecified Status: Acute (6) Hypertension: Code(s): I10 - Essential (primary) hypertension Status: Acute Plan Place patient under observation status Continuous cardiac tele monitoring Patient received 2 L of IV hydration in the ER Continue with gentle IV hydration with D5 half normal saline with 20 mEq KCL at 125 cc/hour on the floor Strict I&O Hold off on Lasix Continue with cardiac meds 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 Electrolyte replacement as per protocol. Kidney function is improving, patient still has a dizziness Vital signs stable Repeated echocardiogram, report normal EF, grade 1 diastolic dysfunction, no significant valvular disease consult neurologist for evaluation and treatments ?MRI brain and CTA brain/carotid unremarkable no acute intracranial issues or significant artery stenosis Neurologist ?Suspects likely due to orthostatic intolerance in the setting of softer blood pressures. Subjective Date/time seen: 02/03/23 08:30 Interval history: I saw exam patient today, patient has no new issue events over the night,. Patient denies headache, focal weakness, abdomen pain, nausea vomiting diarrhea dysuria. Dizziness is improving Exam Narrative: Vital signs: Please see the chart. General physical exam: Well-developed, well-nourished, feels tired and fatigued Head/eyes: Atraumatic, EOMI, PERRLA. ENT: +dry mucous membranes, nasal passages clear. Neck: Supple, full range of motion, trachea midline. CVS: S1 + S2 + 0, regular rate and rhythm, no murmurs Respiratory: Bilaterally fair air entry in both lung beverly, mild B/L crackles, symmetric chest expansion, no distress Abdomen: Soft, non-tender, bowel sounds +ve, no organomegaly Extremities: No clubbing, no cyanosis, no edema, no calf tenderness Musculoskeletal: Moves all, adequate range of motion, no muscle spasms Skin: Warm, dry, no jaundice, no cyanosis Neurological: Awake, alert, oriented x 3, cranial nerves II-XII intact, no focal neurological deficits Psychiatric: Normal mood, non suicidal Objective Data Vital Signs Vital Signs: Vital Signs - 24 hr 02/02/23 09:12 02/02/23 09:15 02/02/23 12:00 Temperature Pulse Rate 63 63 58 L Respiratory Rate 18 Blood Pressure Pulse Oximetry 100 Oxygen Delivery Room Air 02/02/23 14:00 02/02/23 16:00 02/02/23 20:17 Temperature 98.0 F Pulse Rate 61 65 72 Respiratory Rate 18 Blood Pressure 114/48 L Pulse Oximetry 100 Oxygen Delivery 02/02/23 20:00 02/02/23 20:00 02/03/23 00:00 Temperature Pulse Rate 64 72 64 Respiratory Rate 18 Blood Pressure Pulse Oximetry 100 Oxygen Delivery Room Air 02/02/23 22:15 02/03/23 04:00 02/03/23 06:00 Temperature 96.8 F L 98.0 F Pulse Rate 66 73 58 L Respiratory Rate 21 H 20 Blood Pressure 107/62 117/72 Pulse Oximetry 100 99 Oxygen Delivery 02/03/23 07:58 Temperature Pulse Rate Respiratory Rate Blood Pressure Pulse Oximetry 99 Oxygen Delivery Room Air Intake/Output Intake/Output: Intake & Output 01/31/23 02/01/23 02/02/23 02/03/23 23:59 23:59 23:59 23:59 Intake Total 1999 4230 1070 600 Output Total 1400 1999 500 Balance 1999 6424 -194 100 Med
[2023-02-03] MEDS: LOSARTAN POTASSIUM 100 MG TABLET PO (09:17)
[2023-02-03 09:18] VITALS: PULSE 59
[2023-02-03] MEDS: FAMOTIDINE 20 MG TABLET 40 MG PO (09:18)
[2023-02-03] MEDS: MONTELUKAST SODIUM 10 MG TABLET PO (09:18)
[2023-02-03] MEDS: METOPROLOL TARTRATE 50 MG TAB PO (09:18)
[2023-02-03] MEDS: buPROPion HCL XL (24 HR) 150 MG TABCR 300 MG PO (09:18)
[2023-02-03] MEDS: VENLAFAXINE HCL XR 75 MG CAP.ER.24H 225 MG PO (09:18)
[2023-02-03] MEDS: PANTOPRAZOLE 40 MG TABLET PO (09:19)
[2023-02-03 09:20] VITALS: PULSE 59; RESP 20; O2SAT 99
--- NOTE | 2023-02-03 13:20 | PM.DS ---
DS: Admitting Diagnosis Discharge Date today Admitting Diagnosis Dizziness DS: Discharge Diagnosis Discharge Diagnosis (1) Orthostatic hypotension: Code(s): I95.1 - Orthostatic hypotension Status: Acute (2) Dehydration: Code(s): E86.0 - Dehydration Status: Acute (3) YASMANI (acute kidney injury): Code(s): N17.9 - Acute kidney failure, unspecified Status: Acute (4) Cardiomyopathy: Code(s): I42.9 - Cardiomyopathy, unspecified Status: Acute (5) Obesity (BMI 30.0-34.9): Code(s): E66.9 - Obesity, unspecified Status: Acute (6) Hypertension: Code(s): I10 - Essential (primary) hypertension Status: Acute Plan . DS: Summary Hospital Course Hospital Course: Per H&P, Cee Quintero is a 47 year old female with a history of cardiomyopathy of unknown etiology presenting with generalized weakness, fatigue, and dizziness. About two days ago around 10AM, patient suddenly felt dizzy -- which she describes as lightheadedness. She denies any room spinning sensation. Her lightheadedness was worse when going from sitting to standing. In the ED when she was evaluated, her work-up was consistent with dehydration possibly due to over-diuresis. She was given IV fluids which has helped the lightheadedness somewhat. She continues to have some lightheadedness when standing and things appears fuzzy to her vision when she works. If she turns her head quickly, the symptoms worsen as well. She denies any stroke like or focal neurological symptoms. Her diastolic blood pressure has been in the 40-50s since admission and systolic has been mostly in the 110-120s. Place patient under observation status The following medication have been addressed in hospital during hospitalization Continuous cardiac tele monitoring. 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 Electrolyte replacement as per protocol. Kidney function is improving, patient still has a dizziness Vital signs stable Repeated echocardiogram, report normal EF, grade 1 diastolic dysfunction, no significant valvular disease consult neurologist for evaluation and treatments ?MRI brain and CTA brain/carotid unremarkable no acute intracranial issues or significant artery stenosis Neurologist ?Suspects likely due to orthostatic intolerance in the setting of softer blood pressures At discharge, hold furosemide, losartan and metoprolol p.o., may resume the medications per primary care doctor evaluation Time Spent with Patient Time attestation: Total time spent providing and/or coordinating discharge services: Exam Narrative: Vital signs: Please see the chart. General physical exam: Well-developed, well-nourished, feels tired and fatigued Head/eyes: Atraumatic, EOMI, PERRLA. ENT: +dry mucous membranes, nasal passages clear. Neck: Supple, full range of motion, trachea midline. CVS: S1 + S2 + 0, regular rate and rhythm, no murmurs Respiratory: Bilaterally fair air entry in both lung beverly, mild B/L crackles, symmetric chest expansion, no distress Abdomen: Soft, non-tender, bowel sounds +ve, no organomegaly Extremities: No clubbing, no cyanosis, no edema, no calf tenderness Musculoskeletal: Moves all, adequate range of motion, no muscle spasms Skin: Warm, dry, no jaundice, no cyanosis Neurological: Awake, alert, oriented x 3, cranial nerves II-XII intact, no focal neurological deficits Psychiatric: Normal mood, non suicidal DS: Data Data Completed and Pending Labs on day o
== END 2023-02-03 13:45 | disposition home or self-care (01) | DRG 312 ==
LOC: ANHED 20:50 → ANH3MED 22:31
PROVIDERS: Emergency Medicine; Admitting Provider Family Medicine; Emergency Provider Emergency Medicine; Visit Provider Hospitalist
DX: I95.1 Orthostatic hypotension (principal); N17.9 Acute kidney failure, unspecified; I42.9 Cardiomyopathy, unspecified; E86.0 Dehydration; E66.9 Obesity, unspecified; Z68.31 Body mass index [BMI] 31.0-31.9, adult; I10 Essential (primary) hypertension
CPT/HCPCS: 36415; 70450; 70496; 70498; 70551; 71045; 80048; 80053; 81001; 83690; 83735; 84100; 84484; 85025; 85610; 85730; 93005; 93306; 96361; 96365; 96366; 96375; 99285; A9270; G0378; J2405; J3360; J3480; J7030; Q9967